=== PATIENT | female | born 1995 | race Caucasian/White ===

== ENCOUNTER 2021-12-17 17:10 | Observation (INO) ==
[2021-12-17] MEDS ORDERED: Ondansetron ODT 4 MG TAB.RAPDIS SL PRN (22:11)
[2021-12-17] MEDS ORDERED: Naloxone 0.4 MG/ML INJ IVP PRN (22:11)
[2021-12-17] MEDS ORDERED: Melatonin 3 MG TABLET PO PRN (22:11)
[2021-12-17] MEDS ORDERED: hydrOXYzine pamoate 25 MG CAPSULE PO PRN (22:17)
[2021-12-17] MEDS: Nicotine 14 MG PATCH.TD24 TD SCH (23:32)
[2021-12-17] MEDS: cloNIDine HCL 0.1 MG TABLET PO SCH (23:32)
[2021-12-17] MEDS: traZODone 50 MG TABLET PO SCH (23:32)
[2021-12-18 02:09] LABS: Alanine Aminotransferase 24 Units/L (7-52); Albumin 3.4 g/dL (3.5-5.7); Albumin/Globulin Ratio 1.3 (1.1-2.2); Alkaline Phosphatase 79 Units/L (34-104); Aspartate Amino Transferase 30 Units/L (13-39); BUN/Creatinine Ratio 13 (6-26); Bilirubin,Total 0.4 mg/dL (0.3-1.0); Blood Urea Nitrogen 10 mg/dL (6-20); Calcium 8.5 mg/dL (8.6-10.3); Carbon Dioxide 22 mEq/L (23-29); Chloride 106 mEq/L (98-107); Globulin 2.7 g/dL (2.4-3.5); Glucose 127 mg/dL (70-105); Magnesium 1.7 mg/dL (1.6-2.6); Osmolality,Calculated 281 (280-300); Phosphorous 2.3 mg/dL (2.7-4.5); Potassium 3.3 mEq/L (3.5-5.1); Sodium 135 mEq/L (136-145); Total Protein 6.1 g/dL (6.4-8.9)
[2021-12-18 02:54] LABS: Basophils % 0.4 %; Eosinophils # 0.2 K/mcL (0.0-0.6); Eosinophils % 1.9 %; Hematocrit 39.5 % (35.3-44.9); Hemoglobin 13.1 g/dL (11.5-15.4); Immature Granulocytes % 0.2 % (0-4); Lymphocytes # 2.3 K/mcL (0.6-4.6); Lymphocytes % 23.8 %; Mean Corpuscular HGB Conc 33.2 g/dL (31.6-35.5); Mean Corpuscular Volume 90.4 fL (83.0-100.0); Mean Platelet Volume 8.8 fL (9.4-12.4); Monocytes # 0.8 K/mcL (0.0-1.3); Monocytes % 8.7 %; Neutrophils # 6.2 K/mcL (1.6-8.9); Platelet Count 236 K/mcL (140-400); Red Blood Count 4.37 M/mcL (3.82-4.97); Red Cell Distribution Width 12.7 % (11.5-14.5); White Blood Count 9.5 K/mcL (4.3-11.1)
[2021-12-18] MEDS: cloNIDine HCL 0.1 MG TABLET PO SCH ×5 (03:34→18:16)
[2021-12-18] MEDS: *HR* Heparin 5,000 UNIT/ML VIAL SQ SCH ×2 (06:36→18:17)
[2021-12-18] MEDS: Nicotine 14 MG PATCH.TD24 TD SCH (11:38)
[2021-12-18] MEDS ORDERED: methylPREDNISolone 125 MG/2 ML VIAL IVP ONE (11:40)
[2021-12-18] MEDS ORDERED: Acetaminophen 325 MG TABLET PO PRN (11:40)
[2021-12-18] MEDS ORDERED: Nitroglycerin 0.4 MG TAB.SUBL SL PRN (11:41)
[2021-12-18] MEDS: traZODone 50 MG TABLET PO SCH (20:17)
[2021-12-19] MEDS: cloNIDine HCL 0.1 MG TABLET PO SCH ×3 (00:19→05:17)
[2021-12-19] MEDS: *HR* Heparin 5,000 UNIT/ML VIAL SQ SCH (05:21)
[2021-12-19 07:59] VITALS: BP 128/84; PULSE 77; TEMP 98.8; O2SAT 98
[2021-12-19 09:07] LABS: Basophils % 0.3 %; Eosinophils % 0.1 %; Hematocrit 40.7 % (35.3-44.9); Hemoglobin 13.9 g/dL (11.5-15.4); Immature Granulocytes % 0.7 % (0-4); Lymphocytes # 1.9 K/mcL (0.6-4.6); Lymphocytes % 13.1 %; Mean Corpuscular HGB Conc 34.2 g/dL (31.6-35.5); Mean Corpuscular Hemoglobin 30.6 pg (28.0-33.3); Mean Corpuscular Volume 89.6 fL (83.0-100.0); Mean Platelet Volume 9.4 fL (9.4-12.4); Monocytes % 6.7 %; Neutrophils # 11.6 K/mcL (1.6-8.9); Platelet Count 245 K/mcL (140-400); Red Blood Count 4.54 M/mcL (3.82-4.97); Red Cell Distribution Width 12.8 % (11.5-14.5); Segmented Neutrophils % 79.1 %
[2021-12-19 09:10] LABS: White Blood Count 14.7 K/mcL (4.3-11.1)
[2021-12-19 10:55] LABS: BUN/Creatinine Ratio 22 (6-26); Blood Urea Nitrogen 13 mg/dL (6-20); Calcium 9.2 mg/dL (8.6-10.3); Carbon Dioxide 20 mEq/L (23-29); Chloride 109 mEq/L (98-107); Glucose 134 mg/dL (70-105); Magnesium 1.8 mg/dL (1.6-2.6); Osmolality,Calculated 284 (280-300); Potassium 4.2 mEq/L (3.5-5.1); Sodium 136 mEq/L (136-145)
== END 2021-12-19 11:15 | disposition home or self-care (01) ==
LOC: 3BNU → SUATTDRO 20:48
PROVIDERS: ADMIT Internal Medicine; ATTEND Pharmacist